=== PATIENT | male | born 1950 ===

== ENCOUNTER 2024-06-22 06:24 | Day surgery (SDC) | payer OTHER, SELFPAY ==
[2024-06-14 11:18] LABS: Hematocrit 41.7 % (39.0-52.0); Hemoglobin 14.2 g/dL (13.0-18.0); Mean Corp Hgb Conc. 34.1 g/dL (33.0-37.0); Mean Corpuscular Hgb 31.8 pg (27.0-31.0); Mean Corpuscular Volume 93.3 fL (80.0-94.0); Mean Platelet Volume 9.8 fL (7.4-10.4); Platelet Count 308 10^3/uL (130-400); Red Blood Cell Count 4.47 10^6/uL (4.70-6.10); Red Cell Dist. Width 11.8 % (11.5-14.5); White Blood Cell Count 6.2 10^3/uL (4.8-10.8)
[2024-06-14 11:44] LABS: Glycohemoglobin (HgbA1c) 5.7 % (4.0-5.6)
[2024-06-14 11:56] LABS: Blood Urea Nitrogen 21 mg/dl (9-20); Calcium 9.9 mg/dl (8.4-10.2); Carbon Dioxide 24 mmol/L (22-30); Chloride 103 mmol/L (98-107); Glucose 93 mg/dl (70-99); Potassium 4.6 mmol/L (3.5-5.1); Sodium 139 mmol/L (135-145); eGFR > 60.00
[2024-06-14 13:14] VITALS: BMI 27.1
[2024-06-22] VITALS (11 sets, daily range): BP systolic 123–157; BP diastolic 64–77; BMI 27.1
[2024-06-22] MEDS: TYLENOL 1000 MG PO (10:58)
[2024-06-22] MEDS: CELEBREX 200 MG PO (10:58)
[2024-06-22] MEDS: NORMOSOL-R/PLASMALYTE-A 1000 IV (10:58)
== END 2024-06-22 15:45 | disposition home or self-care (01) ==
LOC: SDS 06:24
PROVIDERS: ATTENDING PHYSICIAN Orthopaedic Surgery Hand Surgery; FAMILY PHYSICIAN Family Medicine
DX: M75.102 Unspecified rotator cuff tear or rupture of left shoulder, not specified as traumatic (principal); M75.42 Impingement syndrome of left shoulder; S46.212A Strain of muscle, fascia and tendon of other parts of biceps, left arm, initial encounter; X58.XXXA Exposure to other specified factors, initial encounter; M75.02 Adhesive capsulitis of left shoulder
CPT/HCPCS: 29827; C1713; 36415; 80048; 83036; 85027; 93005; C1763